=== PATIENT | male | born 1995 | race Caucasian/White ===

== ENCOUNTER 2018-01-31 00:31 | Emergency (ER) | payer OTHER, MEDICAID | END 2018-01-31 04:06 | disposition left against medical advice (07) | LOC: M ED 00:31 | DX: Z53.29 Procedure and treatment not carried out because of patient's decision for other reasons (principal) ==

== ENCOUNTER 2018-04-22 22:33 | Emergency (ER) | payer OTHER | END 2018-04-23 00:26 | disposition home or self-care (01) | LOC: M ED 04-23 00:26 | DX: N48.1 Balanitis (principal); N48.22 Cellulitis of corpus cavernosum and penis; K21.9 Gastro-esophageal reflux disease without esophagitis; F32.9 Major depressive disorder, single episode, unspecified; N50.9 Disorder of male genital organs, unspecified | CPT/HCPCS: 99282 ==